=== PATIENT | female | born 1985 | race Caucasian/White ===

== ENCOUNTER 2016-10-25 01:18 | Emergency (ER) | payer SELFPAY ==
[2016-10-25] MEDS ORDERED: Ketorolac Tromethamine 30 MG/ML VIAL ONE (01:41)
[2016-10-25] MEDS ORDERED: traMADol HCl 50 MG TAB ONE (01:41)
[2016-10-25 02:04] LABS: Pregnancy Test - Urine (BHCG) Negative (NEGATIVE); Pregu Control Background? CLEAR/WHITE (CLR/WHITE); Pregu Control Bar Appear? YES (CONTROL BAR); Specific Gravity 1.005 (1.002-1.036)
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
== END 2016-10-25 03:00 | disposition home or self-care (01) ==
LOC: NAV ERS 01:18
DX: S16.1XXA Strain of muscle, fascia and tendon at neck level, initial encounter (principal); F32.9 Major depressive disorder, single episode, unspecified; F17.210 Nicotine dependence, cigarettes, uncomplicated; V89.2XXA Person injured in unspecified motor-vehicle accident, traffic, initial encounter
CPT/HCPCS: 72040; 81025; 96372; J1885